=== PATIENT | female | born 1995 | race Caucasian/White ===

== ENCOUNTER 2023-10-04 13:48 | Inpatient (IN) | payer OTHER ==
[~2023-10-04] VITALS: Ht 170.2 cm; Wt 85.5 kg
[2023-10-12] VITALS (64 sets, daily range): BP systolic 84–130; BP diastolic 50–71; PULSE 61–114; TEMP 97.6–98.2
--- NOTE | 2023-10-12 06:10 | NUR ---
0615- This RN at bedside. Pt moves into bed. EFM and TOCO applied and tracing well. VSS. Assessments completed. Pt denies UC, VB, LOF. +FM per Pt.
[2023-10-12] MEDS ORDERED: PRENATAL TABLET PO (06:29)
[2023-10-12] MEDS ORDERED: LR & Oxytocin 500 ML IV SCH (06:30)
[2023-10-12] MEDS ORDERED: LR 1,000 ML IV SCH (06:30)
[2023-10-12 07:23] LABS: BASO % 0.2 % (0.0-2.0); EOS # 0.1 K/mm3 (0.0-0.7); EOS % 0.9 % (0.0-4.0); GRAN # 8.7 K/mm3 (1.4-6.5); GRAN % 71.6 % (42.2-75.2); HEMATOCRIT 38.8 % (37.0-47.0); HEMOGLOBIN 13.1 g/dl (12.5-16.0); LYMPH # 2.5 K/mm3 (1.2-3.4); LYMPH % 20.7 % (20.0-51.0); MEAN CELL VOLUME 96 fl (80.0-100.0); MEAN CORPUSCULAR HEMOGLOBIN 32 pg (27-31); MEAN CORPUSCULAR HGB CONC 34 g/dl (33.0-37.0); MEAN PLATELET VOLUME 10.9 fl (7.4-10.4); MONO # 0.8 K/mm3 (0.1-0.6); MONO % 6.3 % (1.7-9.3); PLATELET COUNT 173 K/mm3 (130-400); RED BLOOD COUNT 4.06 M/mm3 (4.10-5.30); REDCELL DISTRIBUTION WIDTH-CV 12.9 % (11.5-14.5)
--- NOTE | 2023-10-12 08:45 | NUR ---
0826- Dr Fairchild at bedside. Discusses POC. Pt up to bathroom to void. 0836- SVE by DR Fairchild. Cooks catheter placed. 80ml in uterus and 60ml in vagina. Pt tolerated well.
--- NOTE | 2023-10-12 11:45 | NUR ---
1145- Tension on cannon balloon by this RN, remains in place. Pt states her UCs are increasing in intensity but remains tolerable. Offered Pt birthing ball, ambulation with portable monitor, standing at side of bed. Pt declines at this time.
--- NOTE | 2023-10-12 12:55 | NUR ---
1255- Dr Fairchild and this RN at bedside. After palpating contractions, SVE by Dr Devorah MD able to remove Cooks catheter with gental traction, both balloons intact. SVE with AROM following initial exam. Pt tolerated well.
--- NOTE | 2023-10-12 15:00 | NUR ---
1445- Pt sitting on side of bed. Becoming more uncomfortable with UCs. Pt requests BB. This RN instructs Pt on use, understanding verbalized.
--- NOTE | 2023-10-12 15:15 | NUR ---
1515- UCs not tracing well due to maternal position on BB. ADjusted by RN.
--- NOTE | 2023-10-12 15:30 | NUR ---
1530- UCs not tracing well due to maternal position on BB. RN to bedside to adjust. Pt verbalized being more uncomfortable. Thinking of getting epidural. Questions asked and answered. Informed Pt that [employer] TECHNICIAN will need to be called in from home. Pt understands and wants to try to change position to see if UCs will be more tolerable. Pt assisted into bed. UC adjusted.
--- NOTE | 2023-10-12 15:52 | NUR ---
Pt requests epidural, D[facility] Dumont called to come to hospital. IVF bolus initiated.
[2023-10-12] MEDS ORDERED: ROPivacaine PF 0.2% 200 ML IV ONE (16:26)
--- NOTE | 2023-10-12 16:30 | NUR ---
1615- DIRK Dumont at bedside. Pt repositions self to sitting on side of bed for epidural placement. 1621- Single shot, see anesthesia record. 1625- Pt assisted to semi-fowlers with WL. EFM and TOCO adjusted.
--- NOTE | 2023-10-12 16:45 | NUR ---
1638- Pt repositioned to . This RN remains at bedside with Pt.
[2023-10-12] MEDS ORDERED: Naloxone 0.4 MG/ML VIAL IV PRN ×2 (17:00→23:00)
[2023-10-12] MEDS ORDERED: diphenhydrAMINE 50 MG/ML 1 ML VIAL IV PRN (17:00)
[2023-10-12] MEDS ORDERED: ePHEDrine 50 MG/10 ML VIAL IV PRN (17:00)
[2023-10-12] MEDS ORDERED: diphenhydrAMINE 25 MG CAP PO PRN (17:00)
[2023-10-12] MEDS ORDERED: Ondansetron 4 MG/2 ML VIAL IV PRN (17:00)
--- NOTE | 2023-10-12 17:00 | NUR ---
1648- Dr Fairchild at bedside. SVE performed, waits to feel pressure of UC with exam. Pt remains supine. MD discusses progress and wants to place IUPC, Pt agrees. 1653- With Pt still supine MD places IUPC without difficulty. When plugged into monitor it was not working. HOB adjusted to semi-fowlwers. RN out of room to grab another cord and assistance from BOBBY Paredes. remains with Pt. FHR decels noted on monitor but TOCO not tracing UCs. 1658- After trouble shooting cords, external cord applied and tracing. 1704- removes IUPC and attempts a new IUPC without difficulty. Once plugged in working well. Pt assited to LL, EFM and TOCO adjusted. This RN remains at bedside. After a couple of UCs, Dr Fairchild out of room.
--- NOTE | 2023-10-12 17:15 | NUR ---
1713- Lowe placed without difficulty, Pt WL during placement. Pt then repositioned to RL with LL on stirrup. EFM and TOCO adjusted.
--- NOTE | 2023-10-12 17:30 | NUR ---
Recurrent FHR late decels continue, a couple may be early. 172- Pitocin decreased to 20mu.
--- NOTE | 2023-10-12 17:45 | NUR ---
173- Pt repositioned to LL with RLS. FHR decels continue, variability decreased to minimal. 174- Pitocin off. SVE by this RN with Pt LL. FHR acceleration noted with SS.
[2023-10-12] MEDS ORDERED: traZODone 50 MG TAB PO PRN (21:00)
--- NOTE | 2023-10-12 22:06 | NUR ---
DR CARIAS HERE FOR DELIVERY.PT PUSHING. BED BROKE DOWN AND PT IN FOOT REST. PT CONTINUES TO PUSH WITH CTX'S. 2220 VAG DELIVERY MALE INFANT WITH SEVERAL LACERATIONS. REPAIRED. BABY PLACED ON MOM'S ABD, DRIED AND STIMULATED. ICE PK TO PERINEUM.
[2023-10-12] MEDS ORDERED: Ibuprofen 600 MG TAB PO SCH (23:00)
[2023-10-12] MEDS ORDERED: Mag/Al Hydrox/Simeth Susp 30 ML CUP PO PRN (23:00)
[2023-10-12] MEDS ORDERED: Phenylephrine/Mineral Oil/Petrolatum 57 GM TUBE RC PRN (23:00)
[2023-10-12] MEDS ORDERED: Witch Hazel 50% Pads Bulk TUB TP PRN (23:00)
[2023-10-12] MEDS ORDERED: Acetaminophen 500 MG TAB PO SCH (23:00)
[2023-10-12] MEDS ORDERED: Magnes Hydrox (MOM) 80 MG/ML 30 ML CUP PO PRN (23:00)
[2023-10-12] MEDS ORDERED: Loratadine 10 MG TAB PO PRN (23:00)
[2023-10-12] MEDS ORDERED: oxyCODONE 5 MG TAB PO PRN (23:00)
[2023-10-12] MEDS ORDERED: Measles/Mumps/Rubella Virus Vaccine Live w Diluent 0.5 ML VIAL SQ SCH (23:00)
[2023-10-13] VITALS (7 sets, daily range): BP systolic 91–124; BP diastolic 52–68; PULSE 78–97; TEMP 98–98.4
--- NOTE | 2023-10-13 01:00 | NUR ---
PT ST CATHED FOR 200 CC. PERICARE DONE, PADS CHANGED, GOWN CHANGED. PT'S RIGHT LEG IS STILL NUMB FROM THE EPIDURAL AND NOT ABLE TO STAND YET. PT TRANSFERED TO ROOM 207 VIA STAIR STEADY. PT TOLERATED THE TRANSFER WELL. PT ASSISTED TO BED WITH CALL LIGHT WITHIN REACH. PT INSTRUCTED TO CALL NURSE WHEN SHE NEED TO GO TO THE BR SINCE HER LEG IS TILL NUMB. PT VERBALIZED UNDERSTANDING. PT'S IS AT BEDSIDE.
[2023-10-13 06:45] LABS: BASO % 0.2 % (0.0-2.0); EOS % 0.1 % (0.0-4.0); GRAN # 16.6 K/mm3 (1.4-6.5); GRAN % 82.3 % (42.2-75.2); LYMPH # 2.3 K/mm3 (1.2-3.4); LYMPH % 11.4 % (20.0-51.0); MEAN CELL VOLUME 93 fl (80.0-100.0); MEAN CORPUSCULAR HGB CONC 34 g/dl (33.0-37.0); MEAN PLATELET VOLUME 11.2 fl (7.4-10.4); MONO # 1.1 K/mm3 (0.1-0.6); MONO % 5.6 % (1.7-9.3); PLATELET COUNT 147 K/mm3 (130-400); RED BLOOD COUNT 3.27 M/mm3 (4.10-5.30); REDCELL DISTRIBUTION WIDTH-CV 12.7 % (11.5-14.5)
[2023-10-13 06:50] LABS: HEMATOCRIT 30.5 % (37.0-47.0); HEMOGLOBIN 10.5 g/dl (12.5-16.0); MEAN CORPUSCULAR HEMOGLOBIN 32 pg (27-31)
[2023-10-13] MEDS ORDERED: Sennosides/Docusate 8.6-50 MG TAB PO SCH (08:00)
[2023-10-13] MEDS ORDERED: IBU600 MG PO (09:12)
--- NOTE | 2023-10-13 09:52 | NUR ---
Initial visit; Parents thanked Learning Officer for offering congratulations and God's blessings for the of their son. Learning Officer thanked family for choosing [facility].
--- NOTE | 2023-10-13 12:52 | NUR ---
Patinet denies needs at this time. Family is present in room. Patient bathed and got dressed in casual clothes. NB sleeping
--- NOTE | 2023-10-13 14:18 | NUR ---
PT WALKING AROUND ROOM. HOLDING NB [id number]. CURRENTLY WATCHING EDUCATIONAL VIDEOS. PT STATES NO NEEDS AT THIS TIME. STUDENT NURSE TO REPORT TO FLOOR RN ABOUT PT AND NB PRIOR TO THIS STUDENT NURSE LEAVING THE FLOOR.
[2023-10-14 09:15] VITALS: BP 97/48; PULSE 78; TEMP 97.8
--- NOTE | 2023-10-14 09:16 | NUR ---
Rests in bed, alert. Denies any discomfort at this time.
--- NOTE | 2023-10-14 12:15 | NUR ---
Rests in bed, alert. Discharge instructions given, verbalizes understanding.
== END 2023-10-14 12:15 | disposition home or self-care (01) | DRG 807 ==
LOC: OB 10-12 06:02 → LDR 10-12 06:02 → OB 10-13 01:00
PROVIDERS: ADMIT Obstetrics & Gynecology
PROC: 10E0XZZ Delivery of Products of Conception, External Approach (ICD-10-PCS; principal; 2023-10-12)
PROC: 0KQM0ZZ Repair Perineum Muscle, Open Approach (ICD-10-PCS; 2023-10-12)
PROC: 0UQMXZZ Repair Vulva, External Approach (ICD-10-PCS; 2023-10-12)
PROC: 3E033VJ Introduction of Other Hormone into Peripheral Vein, Percutaneous Approach (ICD-10-PCS; 2023-10-12)
PROC: 10907ZC Drainage of Amniotic Fluid, Therapeutic from Products of Conception, Via Natural or Artificial Opening (ICD-10-PCS; 2023-10-12)
DX: O48.0 Post-term pregnancy (principal); Z37.0 Single live birth; Z3A.40 40 weeks gestation of pregnancy; Z86.16 Personal history of COVID-19; O70.1 Second degree perineal laceration during delivery; O71.82 Other specified trauma to perineum and vulva; O76 Abnormality in fetal heart rate and rhythm complicating labor and delivery; O67.8 Other intrapartum hemorrhage; Z23 Encounter for immunization
CPT/HCPCS: J2405; J2590; J2795; J7120